=== PATIENT | female | born 2000 | race African-American/Black ===

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

== ENCOUNTER 2019-03-20 18:55 | Emergency (ER) | payer OTHER | END 2019-03-20 20:54 | disposition home or self-care (01) | LOC: FTE 18:55 | DX: L73.9 Follicular disorder, unspecified (principal) | CPT/HCPCS: 99283; Z7502 ==